=== PATIENT | female | born 1950 | race Caucasian/White ===

== ENCOUNTER → 2022-10-03 | Outpatient (CLI) | payer MEDICARE ==
--- NOTE | 2022-10-03 20:53 | Diagnostic Imaging Report ---
INDICATION: PRESENCE OF UNSPECIFIED ARTIFICIAL HIP JOINT TECHNIQUE: 2 views of the right hip. CORRELATION STUDY: None FINDINGS: Internal fixation hardware with a gamma nail and intramedullary nette transfixing an impacted subcapital femoral neck fracture. Prominent foreshortening at the femoral neck. An acute bony abnormality does not appear to be suggested. Very mild joint space narrowing at the hip joint. The remainder of the right hemipelvis is otherwise intact. The SI joints and pubic symphysis are maintained. Coarse calcifications of the pelvis may be reflective of calcified fibroids. Rather prominent vascular calcifications. IMPRESSION: 1. Internal fixation hardware transfixing an impacted foreshortened femoral neck fracture. No acute bony abnormality. Dictated by: Dictated on workstation # [id number]
== END ==
LOC: ORTHO 11:50
PROVIDERS: ATTEND Orthopaedic Surgery
DX: Z47.89 Encounter for other orthopedic aftercare (principal); Z96.641 Presence of right artificial hip joint
CPT/HCPCS: 73502; G0463; 99202

== ENCOUNTER → 2022-11-02 | Outpatient (CLI) | payer MEDICARE ==
--- NOTE | 2022-11-02 19:50 | Diagnostic Imaging Report ---
INDICATION: Postop. Compared 10/03/2022 FINDINGS: Internal fixation hardware stable. No displaced fracture. No hardware disruption. No acute pathology. No adverse change. IMPRESSION: Stable postop right hip. Healing treated femoral neck fracture present with no new injury or adverse development. Dictated by: Dictated on workstation # [id number]
== END ==
LOC: ORTHO 12:58
PROVIDERS: ATTEND Orthopaedic Surgery
DX: Z47.89 Encounter for other orthopedic aftercare (principal)
CPT/HCPCS: 73502; G0463; 99213

== ENCOUNTER → 2022-12-07 | Outpatient (CLI) | payer MEDICARE ==
--- NOTE | 2022-12-07 17:24 | Diagnostic Imaging Report ---
INDICATION: Right hip pain AP and oblique views of the right hip are obtained and compared with 11/02/2022. Hardware in the right femoral neck and proximal shaft is in unchanged alignment. Right femoral neck fracture appears stable. There is no new bony abnormality. IMPRESSION: Stable alignment of right femoral neck fracture with unchanged hardware position. No new abnormality. Dictated by: Dictated on workstation # [id number]
== END ==
LOC: ORTHO 12:42
PROVIDERS: ATTEND Orthopaedic Surgery
DX: Z09 Encounter for follow-up examination after completed treatment for conditions other than malignant neoplasm (principal); Z98.890 Other specified postprocedural states
CPT/HCPCS: 73502; G0463; 99213

== ENCOUNTER → 2023-02-06 | Outpatient (CLI) | payer MEDICARE ==
--- NOTE | 2023-02-06 13:20 | Diagnostic Imaging Report ---
EXAMINATION: Right hip radiograph TECHNIQUE: AP, and oblique views of the right hip obtained. HISTORY: PAIN IN RT HIP JOINT COMPARISON: Right hip radiograph on 12/07/2022 FINDINGS: Stable well aligned right femur fixation of the right femoral neck fracture. Unchanged residual lucency through the femoral neck. Redemonstration of of vascular calcification in the right leg. No hardware fracture or migration. IMPRESSION: Stable fixation of right femur without evidence of hardware failure. Dictated by: Dictated on workstation # [id number]
== END ==
LOC: ORTHO 09:32
PROVIDERS: ATTEND Orthopaedic Surgery
DX: M25.551 Pain in right hip (principal); Z98.890 Other specified postprocedural states
CPT/HCPCS: 73502; G0463; 99213

== ENCOUNTER 2023-07-26 13:21 | Emergency (ER) | payer MEDICARE ==
[~2023-07-26] VITALS: Ht 152.4 cm; Wt 68.0 kg
[2023-07-26] MEDS ORDERED: ETOMIDATE INJ SOLN 20 MG/10 ML VIAL IV ONE (13:23)
[2023-07-26] MEDS ORDERED: ROCURONIUM 50 MG/5 ML VIAL IV ONE (13:23)
[2023-07-26 13:37] LABS: BASOPHILS % (AUTO) 0 % (0-10); EOSINOPHILS # (AUTO) 0.1 10^3/uL (0.0-0.3); EOSINOPHILS % (AUTO) 1 % (0-10); HEMATOCRIT 37 % (35-52); HEMOGLOBIN 12.7 g/dL (11.5-16.0); LYMPHOCYTES # (AUTO) 2.3 10^3/uL (1.0-4.0); LYMPHOCYTES % (AUTO) 29 % (12-44); MEAN CORPUSCULAR HEMOGLOBIN 29 pg (25-34); MEAN CORPUSCULAR HGB CONC 35 g/dL (32-36); MEAN CORPUSCULAR VOLUME 82 fL (80-99); MEAN PLATELET VOLUME 10.5 fL (9.0-12.2); MONOCYTES # (AUTO) 0.5 10^3/uL (0.0-1.0); MONOCYTES % (AUTO) 6 % (0-12); NEUTROPHILS # (AUTO) 4.9 10^3/uL (1.8-7.8); NEUTROPHILS % (AUTO) 62 % (42-75); PLATELET COUNT 199 10^3/uL (130-400); WHITE BLOOD COUNT 7.8 10^3/uL (4.3-11.0)
[2023-07-26] MEDS ORDERED: Tetanus/Diphtheria/Pertussis (Acell) ADULT Vaccine 0.5 ML IM ONE (13:45)
--- NOTE | 2023-07-26 13:50 | ED Trauma-Multisystem ---
General Chief Complaint: Trauma EMS/Air Arrival Activat Stated Complaint: FALL Nursing Triage Note: PT ARRIVED BY [facility] WITH CC OF HEAD INJURY FOLLOWING A FALL DOWN 5 STAIRS. PT HAS BLOOD COMING FROM NOSTRILS, POSSIBLY RIGHT EAR OR HEAD. RIGHT HAND IS BRUISED AND SWOLLEN. PT IS POOR HISTORIAN. C-COLLAR IN PLACE BY EMS. Source of Information: EMS Exam Limitations: Physical Impairments (EWA DELGADO APRN) History of Present Illness Date Seen by Provider: Jul 26, 2023 Time Seen by Provider: 13:22 Initial Comments 63-year-old female presents to the ER via EMS after an unwitnessed fall. Patient was on her deck, fell backwards down 5 steps onto concrete, hitting her head. Patient is confused, responds to verbal and painful stimuli, is unable to state her name or where she is, does not open her eyes to verbal or painful stimuli, does follow some commands inconsistently. Large laceration noted to back of patient's head, dried blood from right nare, blood from right ear, uncertain if this is bleeding from the area or blood from the nose or lac eration. Patient is in a cervical spine collar placed by EMS. Patient unable to state what happened. No family is available at this time. (EWA DELGADO APRN) Allergies and Home Medications Allergies Coded Allergies: Sulfa (Sulfonamide Antibiotics) (Verified Allergy, Unknown, 07/26/23) codeine (Verified Allergy, Unknown, 07/26/23) Patient Home Medication List Home Medication List Reviewed: Yes (EWA DELGADO APRN) Review of Systems Review of Systems Constitutional: see HPI Ears: See HPI Nose: See HPI Skin: see HPI (EWA DELGADO APRN) Past Wevtacz-Lfaono-Zuhkai Hx Patient Social History Substance use?: Unable to obtain Alcohol Use?: Unable to obtain Pt feels they are or have been: Unable to obtain (EWA DELGADO APRN) Physical Exam Vital Signs Vital Signs - First Documented 07/26/23 07/26/23 07/26/23 13:28 13:37 14:34 Temp 36.6 Pulse 88 Resp 96 B/P (MAP) 149/76 (100) Pulse Ox 96 O2 Delivery Room Air FiO2 60 (DONOVAN MC MD) Height, Weight, BMI Height: '" Weight: lbs. oz. kg; 29.00 BMI Method: General Appearance: Mild Distress Head: Active Bleeding, Lacerations, Swelling (Posterior head); No Raccoon Eyes Eyes: Bilateral Eye Normal Inspection, Bilateral Eye PERRL (Slowly reactive) Ears, Nose, Throat: Hearing Grossly Normal, Other (Blood coming from right ear canal) Neck: Normal Inspection, Non Tender Cardiovascular: Regular Rate, Rhythm Respiratory: Lungs Clear, Normal Breath Sounds, No Accessory Muscle Use, No Respiratory Distress Back: Normal Inspection, No Vertebral Tenderness Extremity: Normal Range of Motion, Swelling (Swelling to right hand, ecchymosis to right hand) Neurologic/Psychiatric: Disoriented Skin: Normal Color, Warm/Dry (EWA DELGADO APRN) Procedures/Interventions Reason for Intubation: AMS/ GCS 8/9 Date of ETT Placement: Jul 26, 2023 Intubation Method: orotracheal Tube Size: 7.5 Medications: Etomidate, Rocuronium Positive End Tide CO2: Yes Breath Sounds after Intubation: bilateral-equal Intubation Complications: no complications Post Intubation Xray: Yes Initially ET tube above the clavicles, advanced 3 cm (DONOVAN MC MD) Wound Location: Scalp Wound's Depth, Shape: irregular, bone Irrigated w/ Saline (ccs): 200 Wound Debrided: moderate Suture: Silk, Vicryl Suture Size: 2-0 Number of Sutures: 7 (EWA DELGADO APRN) Progress/Results/Core Measures Results/Orders Lab Results Laboratory Tests Test 07/26/23 13:31 Range/Units White Blood Count 7.8 4.3-11.0 10^3/uL Red Blood Count 4.43 3.80-5.11 10^6/uL Hemoglobin 12.7 11.5-16.0 g/dL Hematocrit 37 35-52 % Mean Corpuscular Volume 82 80-99 fL Mean Corpuscular Hemoglobin 29 25-34 pg Mean Corpuscular Hemoglobin Concent 35 32-36 g/dL Red Cell Distribution Width 12.7 10.0-14.5 % Platelet Count 199 130-400 10^3/uL Mean Platelet Volume 10.5 9.0-12.2 fL Immature Granulocyte % (Auto) 1 % Neutrophils (%) (Auto) 62 42-75 % Lymphocytes (%) (Auto) 29 12-44 % Monocytes (%) (Auto) 6 0-12 % Eosinophils (%) (Auto) 1 0-10 % Basophils (%) (Auto) 0 0-10 % Neutrophils # (Auto) 4.9 1.8-7.8 10^3/uL Lymphocytes # (Auto) 2.3 1.0-4.0 10^3/uL Monocytes # (Auto) 0.5 0.0-1.0 10^3/uL Eosinophils # (Auto) 0.1 0.0-0.3 10^3/uL Basophils # (Auto) 0.0 0.0-0.1 10^3/uL Immature Granulocyte # (Auto) 0.1 0.0-0.1 10^3/uL Prothrombin Time 14.3 12.2-14.7 SEC INR Comment 1.1 0.8-1.4 Activated Partial Thromboplast Time 33 24-35 SEC Sodium Level 134 L 135-145 MMOL/L Potassium Level 4.0 3.6-5.0 MMOL/L Chloride Level 100 98-107 MMOL/L Carbon Dioxide Level 24 21-32 MMOL/L Anion Gap 10 5-14 MMOL/L Blood Urea Nitrogen 11 7-18 MG/DL Creatinine 0.67 0.60-1.30 MG/DL Estimat Glomerular Filtration Rate 93 BUN/Creatinine Ratio 16 Glucose Level 252 H 70-105 MG/DL Calcium Level 8.6 8.5-10.1 MG/DL Corrected Calcium 8.9 8.5-10.1 MG/DL Total Bilirubin 1.1 H 0.1-1.0 MG/DL Aspartate Amino Transf (AST/SGOT) 28 5-34 U/L Alanine Aminotransferase (ALT/SGPT) 21 0-55 U/L Alkaline Phosphatase 74 40-136 U/L Troponin I < 0.028 <0.028 NG/ML Total Protein 7.3 6.4-8.2 GM/DL Albumin 3.6 3.2-4.5 GM/DL (DONOVAN MC MD) My Orders Orders - DONOVAN MC MD Chest 1 View, Ap/Pa Only (07/26/23 14:23) Ekg Tracing (07/26/23 14:27) (DONOVAN MC MD) Medications Given in ED (DONOVAN MC MD) Vital Signs/I&O 07/26/23 07/26/23 07/26/23 07/26/23 13:28 13:37 14:34 15:48 Temp 36.6 36.6 Pulse 88 88 90 77 Resp 96 16 B/P (MAP) 149/76 (100) 149/76 (100) 118/48 Pulse Ox 96 100 100 O2 Delivery Room Air Mechanical Ventilator FiO2 60 07/26/23 15:53 Pulse 93 B/P (MAP) 119/93 (DONOVAN MC MD) Blood Pressure Mean: 100 Progress Progress Note : Progress Note Patient seen and evaluated, patient has some verbal response, is confused, unable to state her name or where she is. She does not open her eyes to verbal or painful stimuli. She does follow some commands, she moved her leg on command, but will not open her eyes when asked. Based on exam and symptoms, I am concerned for intracranial hemorrhage, patient activated as a level 2 trauma, work-up initiated including CBC, CMP, coags, type and screen, chest x-ray, pe lvis x-ray, CT head, face, neck, hand x-ray. Radiologist reported intracranial bleed including bilateral subarachnoid bleeding and left subdural hematoma measuring 6 mm with a 6 mm midline shift. He also reported a skull fracture, and fluid in the sinuses but no obvious facial fracture. Based on this information, patient was intubated, sedation used included etomidate 20 mg and rocuronium 50 mg, she was intubated with a 7.5 tube. Placement assessed by auscultation and chest x-ray. ET tube moved based on chest x-ray, current location is 24 at the [facility]. Shepard catheter and OG was placed. Patient did not require further sedation after intubation. Patient became hypotensive after intubation, 2 L of IV fluids ordered as a bolus. Levophed was ordered, but did not have to be administered, because patient's blood pressure stabilized. An EKG was obtained which showed ST elevation in unruly d II, III, and aVF with reciprocal changes. Labs reviewed. CBC grossly normal. CMP shows elevated glucose 252. Coags normal. Other imaging reviewed. Pelvic x-ray shows questionable fracture of the superior right pubic ramus. Hand x-ray shows no acute fracture or dislocation. Wound to the back of patient's head cleaned and assessed, it is a large gaping wound at the occiput involving the galea, sutures were placed to close it, see procedure note. Skull was palpated, possible brain matter coming from wound, blood pooling in the right ear while patient was on her left side during wound repair. Tetanus has been updated. Patient's sister arrived and provided more information. She states that patient does not have any medical conditions, does not take any medications regularly. She states that they were walking up the porch and the patient got to the top of the stairs. The sister was facing away from her, then turned around and saw that the patient had fallen down the steps onto the concrete. I called [facility] in [place] for transfer. Dr. Richards, ER physician, accepted patient for transfer. I also spoke with Dr. Agrawal, neurosurgery, and Dr. Mcconnell, cardiology. Patient will go by helicopter. (EWA DELGADO APRN) Progress Note : Progress Note I assisted nurse practitioner in the evaluation and management of this patient with traumatic subarachnoid hemorrhage. Patient seen and evaluated by me, GCS approximately 8-9. Patient's head CT demonstrated acute intracranial hemorrhage with skull fracture. She was intubated for airway protection. Serial reevaluations by both myself and the nurse practitioner. She had large gaping wound at the occiput with involvement of the galea. Galea was closed with Vicry l stitch and skin closed with 0 silk with good hemostasis. When the nurse practitioner was speaking with Suh regarding patient transfer I noted a change on telemetry, EKG was obtained which demonstrated acute inferior IA. Nurse practitioner spoke with neurosurgery, cardiology as well as the ED who accepted the patient for transfer. [facility] to [facility] in [place] (DONOVAN MC MD) Initial ECG Impression Date: Jul 26, 2023 Initial ECG Impression Time: 14:34 Initial ECG Rhythm: Normal Sinus, PVC Initial ECG Intervals: Normal Comment ST elevation in lead II, III, and aVF, reciprocal changes. (EWA DELGADO APRN) Diagnostic Imaging Diagon[facility] Imaging: Xray Plain Films/CT/US/NM/MRI: pelvis Comments [facility]. [place] [place] NAME: [facility] REC#: [id number] PT STATUS: REG ER : 1950 PHYSICIAN: EWA DELGADO APRN ADMIT DATE: 07/26/23/ER Draft Date of Exam:07/26/23 PELVIS 1 TO 2 VIEWS CLINICAL INDICATION: Patient with head injury after falling down five flights of stairs. EXAM: X-ray of the pelvis, AP view. COMPARISONS: None. FINDINGS: There is questionable cortical regularity involving the superior pubic ramus region, which may represent a fracture. Otherwise, there is no other fracture seen on this exam. There is an intramedullary nette affixing the right femur. Amorphous calcifications in the left pelvis region may be related to fibroids. IMPRESSION: There is a questionable fracture involving the superior right pubic ramus. CT scan of the pelvis would better evaluate. Dictated on workstation # [id number] Dict: 07/26/23 1437 Trans: 07/26/23 1444 [id number] Interpreted by: MICHELLE MARROQUIN MD Electronically signed by: [facility]: CT Plain Films/CT/US/NM/MRI: facial bones, c-spine, head Comments [facility] [place] NAME: [facility] REC#: [id number] PT STATUS: REG ER : 1950 PHYSICIAN: EWA DELGADO APRN ADMIT DATE: 07/26/23/ER Draft Date of Exam:07/26/23 CT HEAD/FACE/CERVICAL WO CLINICAL INDICATION: Patient with head injury after a fall down five stairs. Patient has blood coming from nostrils. EXAM: Axial Head CT without IV contrast with sagittal and coronal reformations. Axial Maxillofacial CT scan without IV contrast with sagittal and coronal reformations. Axial CT scan of the cervical spine with sagittal and coronal reformations. Auto Exposure Controls were utilized during the CT exam to meet ALARA standards for radiation dose reduction. COMPARISON: None. FINDINGS: Head and maxillofacial CT: There is a [id number]-[id number] amount of subarachnoid blood involving the left cerebral hemisphere, predominantly anteriorly and in the sylvian fissure and left side of the suprasellar cistern. There is a small amount of acute subarachnoid blood involving the right cerebral hemisphere. There is a small to moderate-sized acute subdural hematoma involving the left cerebral hemisphere, predominantly anteriorly, which measures 6 mm of thickness. There is 6 mm of left to right midline shift. There is no intraventricular blood. There is no hydrocephalus. There is a small amount of subarachnoid blood in the interpeduncular fossa region. There is a moderate-sized area of extracranial soft tissue swelling involving the right posterior aspect of the head with scalp air likely related to laceration. There is a fracture and widening along the right lambdoid suture, which extends anteriorly along the posterior right temporal bone/mastoid region. There is a moderate amount of fluid in the right mastoid air cells and small amount of fluid in the right middle ear. There is fluid within the right external auditory canal region. This is suspected to represent blood in the setting of temporal bone fracture. There is no other fracture seen on this exam. There is no maxillofacial fracture. Orbits and globes are intact. There is a large amount of fluid within the sphenoid sinus. There is moderate patchy fluid involving the ethmoid sinus. There is a small amount of fluid within the right maxillary sinus. There is mild mucosal thickening involving the right maxillary sinus. Cervical spine CT: There is artifact which obscures the C4 through C6 vertebrae. There is also streak artifact from patient body habitus limiting evaluation of the cervical spine. There is no gross acute cervical spine fracture or dislocation. The vertebral body heights are maintained. There are diffuse disk bulges with superimposed partially calcified posterior disk herniations seen from the C3 through C7 levels. There are associated disk spurs posteriorly in these regions. There are varying degrees of central canal stenosis which is most pronounced at the C5-C6 and C6-C7 levels with at least moderate central canal narrowing. Incidental note of a lipoma in the right posterior aspect of the neck soft tissue, which measures 2.2 cm x 3.8 cm in greatest axial dimensions. Visualized upper lung guerrero are clear. IMPRESSION: 1: There is a ytxpjygj-sg-ehjgj amount of subarachnoid blood involving the left cerebral hemisphere which also involves the left side of the suprasellar cistern region. There is a small amount of right cerebral hemisphere subarachnoid blood. 2: There is a small to moderate-sized left subdural hematoma measuring 6 mm. 3: There is no intraparenchymal blood seen. 4: There is a nondisplaced fracture along the right lambdoid suture which extends across the posterior right temporal bone/right mastoid air cells. There is fluid in the right mastoid air cells, right middle ear, and right external auditory canal region, which may represent blood in the setting of trauma. There is a laceration and swelling involving the right posterior aspect of the head. 5: There is no other skull or maxillofacial fracture. 6: There is fluid and mucosal thickening involving the paranasal sinuses. There is no fracture of the maxillofacial structures. Blood may be considered in the setting of trauma. Results of this report were discussed with Ewa Delgado APRN, via the telephone on 07/26/2023 at 1420 hours. Dictated on workstation # [id number] Dict: 07/26/23 1406 Trans: 07/26/23 1441 [id number] Interpreted by: MICHELLE MARROQUIN MD Electronically signed by: [facility]: Xray Plain Films/CT/US/NM/MRI: hand Comments [facility] [place] NAME: [facility] REC#: [id number] PT STATUS: REG ER : 1950 PHYSICIAN: EWA DELGADO APRN ADMIT DATE: 07/26/23/ER Draft Date of Exam:07/26/23 HAND, RIGHT, 3 VIEWS CLINICAL INDICATIONS: Patient with head injury following a fall down 5 stairs. Patient's right-hand is bruised and swollen. EXAM: X-ray of the right hand, 3 views. COMPARISON: None. FINDINGS: There is no acute fracture or dislocation involving the hand, carpal bones or distal forearm region. There is soft tissue swelling dorsal to the MCP joint seen on lateral view. IMPRESSION: There is no acute fracture or dislocation. There is swelling dorsal to the MCP regions. Dictated on workstation # [id number] Dict: 07/26/23 1445 Trans: 07/26/23 1449 [id number] Interpreted by: MICHELLE MARROQUIN MD Electronically signed by: [facility]: Xray Plain Films/CT/US/NM/MRI: chest Comments [facility]. [place], [place] NAME: [facility] REC#: [id number] PT STATUS: REG ER : 1950 PHYSICIAN: EWA DELGADO APRN ADMIT DATE: 07/26/23/ER Draft Date of Exam:07/26/23 CHEST 1 VIEW, AP/PA ONLY CLINICAL INDICATION: Patient is status post trauma. EXAM: Portable chest x-ray upright view. COMPARISON: None. FINDINGS: Lungs/pleura: There is mild bibasilar atelectasis. There is no lung infiltrate. There is no pneumothorax. There is no pleural effusion. Mediastinum: Unremarkable. Pulmonary vasculature: Unremarkable. Heart: Unremarkable. Bones/extrathoracic soft tissue: Unremarkable. IMPRESSION: There is no radiographic evidence of acute cardiopulmonary process. There is mild bibasilar atelectasis. Dictated on workstation # [id number] Dict: 07/26/23 1405 Trans: 07/26/23 1408 [facility] Interpreted by: MICHELLE MARROQUIN MD Electronically signed by: Diagonstic Imaging: Xray Plain Films/CT/US/NM/MRI: chest Comments [facility]. [place] NAME: [facility] REC#: [id number] PT STATUS: REG ER : 1950 PHYSICIAN: DONOVAN MC MD ADMIT DATE: 07/26/23/ER Draft Date of Exam:07/26/23 CHEST 1 VIEW, AP/PA ONLY INDICATION: Respiratory distress. Frontal chest has an ET tube placed with its tip is at the level of the thoracic inlet currently about 5 cm above the donald advancement 2 to 3 cm would optimize its positioning. Lung volumes are symmetric and there is no focal consolidation, effusion or pneumothorax. IMPRESSION: ET tube tip is at the thoracic inlet about 2 to 3 cm shy of optimal positioning. Clear lungs with no acute pleural pathology. Dictated on workstation # [id number] Dict: 07/26/23 1449 Trans: 07/26/23 1453 Interpreted by: JEREMY ARIZMENDI Electronically signed by: (EWA DELGADO APRN) Critical Care Note Critical Care Start Time: 13:22 Stop Time: 14:45 Total Time (minutes) Time does not include that spent in procedures (intubation) time includes initial evaluation, fluid resuscitation, airway management (not including intubation) review and interpretation of labs, images; discussion with family; serial re-evaluations (ODNOVAN MC MD) Departure Impression Primary Impression: Subdural hematoma Additional Impressions: Subarachnoid hemorrhage STEMI (ST elevation myocardial infarction) Qualified Codes: I21.11 - ST elevation (STEMI) myocardial infarction involving right coronary artery Open skull fracture Qualified Codes: S02.119B - Unspecified fracture of occiput, initial encounter for open fracture Disposition: XFER SHT-TRM HOSP Condition: Critical Transfer Transfer Reason: Exceeds level of care Time Spoke to Accepting Phy: 14:[address] Richards, ER physician, accepted patient. Dr. Agrawal, neurosurgery, consulted. Dr. Mcconnell, cardiology, consulted. Transfer Time: 14:50 Transfer Facility: [facility] Method of Transfer: Air (EWA DELGADO APRN) Departure-Patient Inst. Referrals: NO,LOCAL PHYSICIAN (PCP/Family) Primary Care Physician EWA DELGADO APRN Jul 26, 2023 13:50 DONOVAN MC MD Jul 26, 2023 16:10
[2023-07-26 13:51] LABS: ALBUMIN 3.6 GM/DL (3.2-4.5)
[2023-07-26 13:52] LABS: CALCIUM 8.6 MG/DL (8.5-10.1)
[2023-07-26 13:53] LABS: TOTAL PROTEIN 7.3 GM/DL (6.4-8.2)
[2023-07-26 13:55] LABS: BILIRUBIN,TOTAL 1.1 MG/DL (0.1-1.0)
[2023-07-26 13:57] LABS: CREATININE SERUM 0.67 MG/DL (0.60-1.30)
[2023-07-26] MEDS ORDERED: NS IV 1000 ML 1,000 ML ONE (13:58)
--- NOTE | 2023-07-26 14:09 | Diagnostic Imaging Report ---
CLINICAL INDICATION: Patient is status post trauma. EXAM: Portable chest x-ray upright view. COMPARISON: None. FINDINGS: Lungs/pleura: There is mild bibasilar atelectasis. There is no lung infiltrate. There is no pneumothorax. There is no pleural effusion. Mediastinum: Unremarkable. Pulmonary vasculature: Unremarkable. Heart: Unremarkable. Bones/extrathoracic soft tissue: Unremarkable. IMPRESSION: There is no radiographic evidence of acute cardiopulmonary process. There is mild bibasilar atelectasis. Dictated by: Dictated on workstation # [id number]
[2023-07-26 14:23] LABS: INR 1.1 (0.8-1.4); PROTHROMBIN TIME PATIENT 14.3 SEC (12.2-14.7)
[2023-07-26] MEDS ORDERED: NOREPINEPHRINE 8 MG/250 ML 250 ML IV ONE (14:28)
[2023-07-26] MEDS ORDERED: NOREPINEPHRINE 8 MG/250 ML 250 ML IV SCH (14:30)
[2023-07-26] MEDS ORDERED: NS IV 1000 ML 1,000 ML IV SCH (14:30)
[2023-07-26 14:34] VITALS: BP 119/93
--- NOTE | 2023-07-26 14:42 | Diagnostic Imaging Report ---
CLINICAL INDICATION: Patient with head injury after a fall down five stairs. Patient has blood coming from nostrils. EXAM: Axial Head CT without IV contrast with sagittal and coronal reformations. Axial Maxillofacial CT scan without IV contrast with sagittal and coronal reformations. Axial CT scan of the cervical spine with sagittal and coronal reformations. Auto Exposure Controls were utilized during the CT exam to meet ALARA standards for radiation dose reduction. COMPARISON: None. FINDINGS: Head and maxillofacial CT: There is a kthhjenk-hm-zamkv amount of subarachnoid blood involving the left cerebral hemisphere, predominantly anteriorly and in the sylvian fissure and left side of the suprasellar cistern. There is a small amount of acute subarachnoid blood involving the right cerebral hemisphere. There is a small to moderate-sized acute subdural hematoma involving the left cerebral hemisphere, predominantly anteriorly, which measures 6 mm of thickness. There is 6 mm of left to right midline shift. There is no intraventricular blood. There is no hydrocephalus. There is a small amount of subarachnoid blood in the interpeduncular fossa region. There is a moderate-sized area of extracranial soft tissue swelling involving the right posterior aspect of the head with scalp air likely related to laceration. There is a fracture and widening along the right lambdoid suture, which extends anteriorly along the posterior right temporal bone/mastoid region. There is a moderate amount of fluid in the right mastoid air cells and small amount of fluid in the right middle ear. There is fluid within the right external auditory canal region. This is suspected to represent blood in the setting of temporal bone fracture. There is no other fracture seen on this exam. There is no maxillofacial fracture. Orbits and globes are intact. There is a large amount of fluid within the sphenoid sinus. There is moderate patchy fluid involving the ethmoid sinus. There is a small amount of fluid within the right maxillary sinus. There is mild mucosal thickening involving the right maxillary sinus. Cervical spine CT: There is artifact which obscures the C4 through C6 vertebrae. There is also streak artifact from patient body habitus limiting evaluation of the cervical spine. There is no gross acute cervical spine fracture or dislocation. The vertebral body heights are maintained. There are diffuse disk bulges with superimposed partially calcified posterior disk herniations seen from the C3 through C7 levels. There are associated disk spurs posteriorly in these regions. There are varying degrees of central canal stenosis which is most pronounced at the C5-C6 and C6-C7 levels with at least moderate central canal narrowing. Incidental note of a lipoma in the right posterior aspect of the neck soft tissue, which measures 2.2 cm x 3.8 cm in greatest axial dimensions. Visualized upper lung guerrero are clear. IMPRESSION: 1: There is a yolhnbxq-[id number]-[id number] amount of subarachnoid blood involving the left cerebral hemisphere which also involves the left side of the suprasellar cistern region. There is a small amount of right cerebral hemisphere subarachnoid blood. 2: There is a small to moderate-sized left subdural hematoma measuring 6 mm. 3: There is no intraparenchymal blood seen. 4: There is a nondisplaced fracture along the right lambdoid suture which extends across the posterior right temporal bone/right mastoid air cells. There is fluid in the right mastoid air cells, right middle ear, and right external auditory canal region, which may represent blood in the setting of trauma. There is a laceration and swelling involving the right posterior aspect of the head. 5: There is no other skull or maxillofacial fracture. 6: There is fluid and mucosal thickening involving the paranasal sinuses. There is no fracture of the maxillofacial structures. Blood may be considered in the setting of trauma. Results of this report were discussed with Ewa Dwyer APRN, via the telephone on 07/26/2023 at 1420 hours. Dictated by: Dictated on workstation # [id number]
--- NOTE | 2023-07-26 14:45 | Diagnostic Imaging Report ---
CLINICAL INDICATION: Patient with head injury after falling down five flights of stairs. EXAM: X-ray of the pelvis, AP view. COMPARISONS: None. FINDINGS: There is questionable cortical regularity involving the superior pubic ramus region, which may represent a fracture. Otherwise, there is no other fracture seen on this exam. There is an intramedullary nette affixing the right femur. Amorphous calcifications in the left pelvis region may be related to fibroids. IMPRESSION: There is a questionable fracture involving the superior right pubic ramus. CT scan of the pelvis would better evaluate. Dictated by: Dictated on workstation # [id number]
--- NOTE | 2023-07-26 14:49 | Diagnostic Imaging Report ---
CLINICAL INDICATIONS: Patient with head injury following a fall down 5 stairs. Patient's right-hand is bruised and swollen. EXAM: X-ray of the right hand, 3 views. COMPARISON: None. FINDINGS: There is no acute fracture or dislocation involving the hand, carpal bones or distal forearm region. There is soft tissue swelling dorsal to the MCP joint seen on lateral view. IMPRESSION: There is no acute fracture or dislocation. There is swelling dorsal to the MCP regions. Dictated by: Dictated on workstation # [id number]
--- NOTE | 2023-07-26 14:53 | Diagnostic Imaging Report ---
INDICATION: Respiratory distress. Frontal chest has an ET tube placed with its tip is at the level of the thoracic inlet currently about 5 cm above the donald advancement 2 to 3 cm would optimize its positioning. Lung volumes are symmetric and there is no focal consolidation, effusion or pneumothorax. IMPRESSION: ET tube tip is at the thoracic inlet about 2 to 3 cm shy of optimal positioning. Clear lungs with no acute pleural pathology. Dictated by: Dictated on workstation # [id number]
[2023-07-26 15:53] VITALS: BP 119/93
== END 2023-07-26 15:45 | disposition short-term general hospital (02) ==
LOC: EDUNIT# 13:21 → ER 13:22
DX: S06.5XAA Traumatic subdural hemorrhage with loss of consciousness status unknown, initial encounter (principal); S06.6XAA Traumatic subarachnoid hemorrhage with loss of consciousness status unknown, initial encounter; S02.91XB Unspecified fracture of skull, initial encounter for open fracture; S60.221A Contusion of right hand, initial encounter; I21.3 ST elevation (STEMI) myocardial infarction of unspecified site; R40.2422 Glasgow coma scale score 9-12, at arrival to emergency department; Z23 Encounter for immunization; W10.9XXA Fall (on) (from) unspecified stairs and steps, initial encounter; W22.8XXA Striking against or struck by other objects, initial encounter
CPT/HCPCS: 12031; 31500; 36415; 51702; 70450; 70486; 71045; 72125; 72170; 73130; 80053; 84484; 85025; 85610; 85730; 86850; 86900; 86901; 90715; 93005; 93041; 99291